=== PATIENT | female | born 1970 | race Caucasian/White ===

== ENCOUNTER 2021-12-20 12:10 | Emergency (ER) | payer SELFPAY ==
[~2021-12-20] VITALS: Ht 162.6 cm; Wt 75.1 kg
[2021-12-20] MEDS ORDERED: KETOROLAC TROME10 MG PO (16:28)
== END 2021-12-20 16:36 | disposition home or self-care (01) ==
LOC: FSED 12:56
DX: R10.31 Right lower quadrant pain (principal)
CPT/HCPCS: 74176; 76705; 76856; 80053; 81003; 81025; 85025; 99284